=== PATIENT | female | born 1930 | race Caucasian/White ===

== ENCOUNTER 2018-07-18 19:07 | Emergency (ER) | payer MEDICARE, OTHER ==
[~2018-07-18] VITALS: Ht 167.6 cm; Wt 84.7 kg
[2018-07-18] MEDS ORDERED: AMLODIPINE BESY10 MG PO (19:19)
[2018-07-18] MEDS ORDERED: CARVEDILOL12.5 MG PO (19:20)
[2018-07-18] MEDS ORDERED: FUROSEMIDE 20 M20 M1 PO (19:20)
[2018-07-18] MEDS ORDERED: LASIX 20 MG TAB20 MG PO (19:21)
[2018-07-18] MEDS ORDERED: SYNTHROID125 MC1 PO (19:21)
[2018-07-18] MEDS ORDERED: LISINOPRIL20 MG PO (19:22)
[2018-07-18] MEDS ORDERED: KLOR-CON 1010 MEQ PO (19:22)
[2018-07-18] MEDS ORDERED: SEROQUEL 25 MG25 M1 PO (19:24)
[2018-07-18] MEDS ORDERED: SERTRALINE HCL100 MG PO (19:24)
[2018-07-18] MEDS ORDERED: COUMADIN 2 MG TA2 M1 PO (19:25)
[2018-07-18] MEDS ORDERED: GAVILAX17 GM PO (19:25)
[2018-07-18] MEDS ORDERED: ACETAMINOPHEN500 M1 PO (19:26)
[2018-07-18] MEDS ORDERED: SEROQUEL 25 MG25 M2 PO (19:27)
[2018-07-18 20:06] LABS: ABSOLUTE BASOPHILS 0.1 thou/uL (0.0-0.2); ABSOLUTE EOSINOPHILS 0.2 thou/uL (0.0-0.7); ABSOLUTE LYMPHOCYTES 1.3 thou/uL (0.8-5.3); ABSOLUTE NEUTROPHILS 5.5 thou/uL (1.6-8.1); BASOPHILS 0.9 %; EOSINOPHILS 2.5 %; HEMATOCRIT 38.2 % (37.0-47.0); HEMOGLOBIN 12.8 gm/dL (12.0-15.0); LYMPHOCYTES 15.9 %; MCH 29.5 pg (26.0-34.0); MCHC 33.6 g/dL (28.0-37.0); MCV 87.6 fL (80.0-100.0); MONOCYTES 12.3 %; MPV 8.4 fl. (7.2-11.1); NUCLEATED RBCS 0 /100WBC; PLATELET COUNT* 201 thou/uL (150-400); POLYS 68.4 %; RBC 4.36 mil/uL (4.20-5.00); RDW-CV 15.4 % (10.5-14.5)
[2018-07-18 20:13] LABS: INR 2.4
[2018-07-18 20:17] LABS: ALBUMIN 3.4 g/dL (3.4-5.0); TOTAL BILIRUBIN 0.4 mg/dL (<0.1-1.0); TOTAL PROTEIN 6.5 g/dL (6.4-8.2)
[2018-07-18 20:26] LABS: URINE BILIRUBIN NEGATIVE (Negative); URINE BLOOD NEGATIVE (Negative); URINE CLARITY CLEAR; URINE COLOR YELLOW; URINE GLUCOSE-RANDOM NEGATIVE (Negative); URINE KETONES TRACE (Negative); URINE LEUKOCYTES-REFLEX TRACE (Negative); URINE NITRITE-REFLEX NEGATIVE (Negative); URINE PROTEIN NEGATIVE (Negative); URINE SPECIFIC GRAVITY >= 1.030 (1.005-1.030); URINE UROBILINOGEN 0.2 E.U./dl (0.2-1.0)
[2018-07-18 20:32] LABS: SQUAMOUS >10 Many /LPF (0-3)
[2018-07-18 20:33] LABS: BACTERIA-REFLEX 1-9 Few /HPF (None Seen); CRYSTALS None Seen /LPF (None Seen); FINE GRANULAR CASTS >10 Many /LPF (None Seen); URINE RBC 0-2 Rare /HPF (0-2); URINE WBC-REFLEX 0-5 Rare /HPF (0-5)
[2018-07-18 21:32] VITALS: BP 122/68
== END 2018-07-18 21:32 | disposition home or self-care (01) ==
LOC: M.ERS 19:07
PROVIDERS: Emergency Medicine
DX: S51.011A Laceration without foreign body of right elbow, initial encounter (principal); I48.91 Unspecified atrial fibrillation; F32.9 Major depressive disorder, single episode, unspecified; F03.90 Unspecified dementia, unspecified severity, without behavioral disturbance, psychotic disturbance, mood disturbance, and anxiety; E03.9 Hypothyroidism, unspecified; F41.9 Anxiety disorder, unspecified; I50.9 Heart failure, unspecified; Z88.8 Allergy status to other drugs, medicaments and biological substances; W18.2XXA Fall in (into) shower or empty bathtub, initial encounter; Y93.89 Activity, other specified; Y92.89 Other specified places as the place of occurrence of the external cause; Y99.8 Other external cause status

== ENCOUNTER 2018-10-24 22:47 | Inpatient (IN) | payer MEDICARE, OTHER ==
[~2018-10-24] VITALS: Ht 172.7 cm; Wt 85.7 kg
[~2018-10-24 22:47] MED LIST: ACETAMINOPHEN500 M1 PO; AMLODIPINE BESY10 MG PO; CARVEDILOL12.5 MG PO; COUMADIN 2 MG TA2 M1 PO; FUROSEMIDE 20 M20 M1 PO; GAVILAX17 GM PO; KLOR-CON 1010 MEQ PO; LASIX 20 MG TAB20 MG PO; LISINOPRIL20 MG PO; SEROQUEL 25 MG25 M1 PO; SEROQUEL 25 MG25 M2 PO; SERTRALINE HCL100 MG PO; SYNTHROID125 MC1 PO
[2018-10-24 22:52] VITALS: BP 154/79
[2018-10-24 23:55] LABS: ABSOLUTE BASOPHILS 0.1 thou/uL (0.0-0.2); ABSOLUTE EOSINOPHILS 0.1 thou/uL (0.0-0.7); ABSOLUTE LYMPHOCYTES 1.1 thou/uL (0.8-5.3); ABSOLUTE MONOCYTES 1.1 thou/uL (0.0-1.2); ABSOLUTE NEUTROPHILS 6.4 thou/uL (1.6-8.1); BASOPHILS 0.6 %; EOSINOPHILS 1.7 %; HEMATOCRIT 31.3 % (37.0-47.0); HEMOGLOBIN 10.6 gm/dL (12.0-15.0); MCH 29.3 pg (26.0-34.0); MCHC 33.9 g/dL (28.0-37.0); MCV 86.3 fL (80.0-100.0); MONOCYTES 12.6 %; MPV 8.6 fl. (7.2-11.1); NUCLEATED RBCS 0 /100WBC; PLATELET COUNT* 205 thou/uL (150-400); POLYS 73.1 %; RBC 3.63 mil/uL (4.20-5.00); RDW-CV 15.5 % (10.5-14.5); WBC 8.8 thou/uL (4.0-11.0)
[2018-10-24 23:56] LABS: CALCIUM 9.2 mg/dL (8.5-10.1); CREATININE 0.9 mg/dL (0.6-1.3); POTASSIUM 3.5 mmol/L (3.5-5.1)
[2018-10-25 02:27] LABS: INR 3.1
[2018-10-25 03:43] VITALS: BP 156/83
[2018-10-25 04:15] VITALS: BP 178/73
--- NOTE | 2018-10-25 04:15 | NUR ---
PT ADMITTED FROM ER. UP TO C WITH SBA. TRANSFERS WELL. LT KNEE WITH HEMATOMA AND AVULSION. LT LOWER LEG AND FOOT WITH ECCHYMOSIS AND EDEMA. ELEVATED ON PILLOW. ACEWRAP TO KNEE. PT CONFUSED X4 BUT COOPERATIVE. TELEMETRY APPLIED SHOWING A-FIB. SEE ADMISSION ASSESSMENT AND HX. WILL CONT TO MONITOR AND ASSIST NEEDED. BED ALARM ON.
[2018-10-25 06:52] LABS: HEMATOCRIT 29.1 % (37.0-47.0); HEMOGLOBIN 9.9 gm/dL (12.0-15.0)
[2018-10-25 08:00] VITALS: BP 153/68
--- NOTE | 2018-10-25 09:39 | NUR ---
ASSUMED CARE OF PATIENT THIS AM AT 0730. PATIENT IS ALERT, SHE IS ORIENTED TO PERSON AND COOPERATIVE. PATIENT C/O LEFT LEG PAIN THIS AM. LEFT LEG IS EDEMATOUS AND DISCOLORED. HE LEFT HEG HAS BEEN ELEVATED. TELE SHOWS AFIB. PATIENT ASSISTED WITH ADLS THROUGHOUT THE DAY. WILL CONTINUE TO MONITOR.
--- NOTE | 2018-10-25 10:50 | EKG ---
[place] [address] ELECTROCARDIOGRAM REPORT Name: WAQAS MATHUR Room: [address] ADM IN [facility].#: [id number] Admission: 10/25/18 Attend Phys: Kash Mckay Discharge: Date of : [birth year] Report #: [id number] THIS REPORT FOR: //name// [facility] ED Test Date: 2018-10-25 Test Time: 02:23:28 Pat Name: WAQAS MATHUR Department: Room: [facility] Gender: F Hook Tender: PEGGY : 1930 Requested By: Zari Slade Order Number: [id number] MD: Esdras Damon Measurements Intervals [place] Rate: 60 P: [place]: QRS: 47 QRSD: 109 T: 6 QT: 463 QTc: 463 Interpretive Statements Atrial fibrillation Borderline repolarization abnormality No previous ECG available for comparison Electronically Signed On 10-25-2018 10:50:29 CDT by Esdras Damon [email or web address] <ELECTRONICALLY SIGNED> By: Esdras Damon MD, [facility] 10/25/18 1050 0223 2 Esdras Damon MD, FACC /EPI
--- NOTE | 2018-10-25 11:04 | NUR ---
INITIAL ASSESSMENT: Pt evaluated for d/c planning needs. Reviewed chart and spoke with nurse, pt and pt's daughter Estella. Pt lives in memory care unit at the [facility]. Pt is retired RN. Pt is currently on service with [facility]. Pt uses walker for ambulation. Pt's daughter is hopeful pt will be able to return home on d/c from hospital. Will remain available to assist as needed.
[2018-10-25 12:01] VITALS: BP 146/67
--- NOTE | 2018-10-25 15:43 | NUR ---
P.T. ORDERS RECEIVED. CHART REVIEWED. SILVANO COMPLETED THIS DATE. FULL DOCUMENTATION TO FOLLOW.
[2018-10-25 16:50] VITALS: BP 148/74
[2018-10-25 20:00] VITALS: BP 161/89
[2018-10-26] VITALS: BP 156/73
[2018-10-26 04:00] VITALS: BP 162/78
--- NOTE | 2018-10-26 06:47 | NUR ---
ASSUMED PT CARE AT 1930. ASSESSMENT COMPLETED CHARTED. PT RESTING IN BED WITH BED ALARM ON. C/O LEFT LEG PAIN AND GIVEN PRN PAIN MEDICATION. UP WITH SBA TO BSC, ABLE TO MAKE SOME NEEDS KNOWN. IMPULSIVE AT TIMES BUT EASILY REDIRECTED. WILL CONTINUE TO MONITOR.
[2018-10-26 08:00] VITALS: BP 161/67
[2018-10-26 11:26] VITALS: BP 141/69
[2018-10-26 16:03] VITALS: BP 150/65
--- NOTE | 2018-10-26 18:39 | NUR ---
ASSUMED PATIENT AT 0730. PATIENT REMAINS ORIENTED TO PERSON ONLY. REORIENTED TO PLACE AND TIME PERIODICALLY THROUGH THE DAY. PATIENT ASSISTED UP IN CHAIR AND TO [facility]. SHE CONTINUES TO C/O LEFT LEG PAIN. PAIN MANAGED WITH PAIM MEDICATION. SHE STATES PAIN IS LESS BUT IS UNABLE TO RATE IT. PATIENT'S EARS IRRIGATED BILATERALLY PER DR ORDER. NO WAX RESULTS OBSERVED AT THIS TIME. TELE SHOWS CONTINUED A FIB. NO FALLS OR INJURY.
[2018-10-26 20:00] VITALS: BP 157/90
[2018-10-26 21:06] LABS: PROTIME 12.4 Seconds (9.20-11.50)
[2018-10-26 21:08] LABS: INR 1.2
[2018-10-27] VITALS (7 sets, daily range): BP systolic 148–173; BP diastolic 66–79
--- NOTE | 2018-10-27 05:56 | NUR ---
ASSUMED PT CARE AT 1930. ASSESSMENT COMPLETED CHARTED. ABLE TO MAKE SOME NEEDS KNOWN. UP WITH SBA AND WALKER. C/O LEFT LEG PAIN, PRN TRAMADOL GIVEN REQUESTED. PT RESTING IN BED AT THIS TIME. WILL CONTINUE TO MONITOR.
[2018-10-27] MEDS ORDERED: XARELTO10 MG PO (13:13)
--- NOTE | 2018-10-27 13:23 | NUR ---
Pt discharging back to [facility] today, resumption orders faxed to [facility]. Dtr in room and will transport.
--- NOTE | 2018-10-27 14:24 | NUR ---
ASSUMED PT CARE AT 0700 PT IS ALERT AMD ORIENTED X 1-2 PT DENIES PAIN OR SOA ON RA, PT IS UP WITH SBA WITH WALKER PT IS A FALL RISK BED ALARM IS ON, SPOKE WITH NOREEN WHO CLEARED PT FOR DISCHARGE PT WILL START ON XARELTO, PT IS DISCHARGING TO [facility], WILL CONTINUE TO MONITOR
[2018-10-27] MEDS ORDERED: SEROQUEL 25 MG25 M1 PO (15:46)
[2018-10-27] MEDS ORDERED: SERTRALINE HCL50 MG PO (15:47)
== END 2018-10-27 16:05 | disposition home health service (06) | DRG 604 ==
LOC: M.ERS 22:47 → M.TBA-ER 10-25 02:31 → M.2W 10-25 02:31
PROVIDERS: Emergency Medicine; ADMIT Internal Medicine
DX: S80.02XA Contusion of left knee, initial encounter (principal); G93.41 Metabolic encephalopathy; E03.9 Hypothyroidism, unspecified; I48.91 Unspecified atrial fibrillation; F41.3 Other mixed anxiety disorders; I50.9 Heart failure, unspecified; F32.9 Major depressive disorder, single episode, unspecified; W18.39XA Other fall on same level, initial encounter; F03.90 Unspecified dementia, unspecified severity, without behavioral disturbance, psychotic disturbance, mood disturbance, and anxiety; Z98.41 Cataract extraction status, right eye; Z98.42 Cataract extraction status, left eye; Z88.8 Allergy status to other drugs, medicaments and biological substances; Y93.89 Activity, other specified; Y92.89 Other specified places as the place of occurrence of the external cause; Y99.8 Other external cause status

== ENCOUNTER 2018-11-29 19:34 | Emergency (ER) | payer MEDICARE, OTHER ==
[~2018-11-29] VITALS: Ht 172.7 cm; Wt 82.3 kg
[~2018-11-29 19:34] MED LIST changes: +SERTRALINE HCL50 MG PO; +XARELTO10 MG PO
[2018-11-29] MEDS ORDERED: LACTULOSE10 GM/15 M PO (19:52)
[2018-11-29] MEDS ORDERED: PENICILLIN V P500 MG PO (19:53)
[2018-11-29 20:15] LABS: ABSOLUTE BASOPHILS 0.1 thou/uL (0.0-0.2); ABSOLUTE EOSINOPHILS 0.2 thou/uL (0.0-0.7); ABSOLUTE LYMPHOCYTES 1.4 thou/uL (0.8-5.3); ABSOLUTE NEUTROPHILS 6.6 thou/uL (1.6-8.1); BASOPHILS 0.8 %; EOSINOPHILS 2.3 %; HEMATOCRIT 37.1 % (37.0-47.0); HEMOGLOBIN 12.3 gm/dL (12.0-15.0); LYMPHOCYTES 15.1 %; MCH 28.6 pg (26.0-34.0); MCHC 33.2 g/dL (28.0-37.0); MONOCYTES 10.6 %; MPV 8.5 fl. (7.2-11.1); NUCLEATED RBCS 0 /100WBC; PLATELET COUNT* 210 thou/uL (150-400); POLYS 71.2 %; RBC 4.32 mil/uL (4.20-5.00); RDW-CV 15.6 % (10.5-14.5); WBC 9.3 thou/uL (4.0-11.0)
[2018-11-29 20:21] LABS: CALCIUM 9.2 mg/dL (8.5-10.1); POTASSIUM 4.1 mmol/L (3.5-5.1)
[2018-11-29 21:26] LABS: URINE BILIRUBIN NEGATIVE (Negative); URINE BLOOD TRACE (Negative); URINE CLARITY CLEAR; URINE COLOR YELLOW; URINE GLUCOSE-RANDOM NEGATIVE (Negative); URINE KETONES NEGATIVE (Negative); URINE LEUKOCYTES-REFLEX NEGATIVE (Negative); URINE NITRITE-REFLEX NEGATIVE (Negative); URINE PROTEIN NEGATIVE (Negative); URINE UROBILINOGEN 0.2 E.U./dl (0.2-1.0)
[2018-11-29] MEDS ORDERED: HYDROCODON-ACE1 EAC7 PO (21:44)
[2018-11-29 22:26] VITALS: BP 152/71
--- NOTE | 2018-11-30 13:44 | EKG ---
[place] [address] ELECTROCARDIOGRAM REPORT Name: WAQAS MATHUR [id number] Admission: 11/29/18 Attend Phys: Discharge: 11/29/18 Date of : [birth year] Report #: [id number] THIS REPORT FOR: //name// [facility] ED Test Date: 2018-11-29 Test Time: 19:46:33 Pat Name: WAQAS MATHUR Department: Room: Gender: F Welding Manager: Cherelle ASKEW : 1930 Requested By: Zari Slade Order Number: [id number] Bailee MD: Esdras Damon Measurements Intervals [place] Rate: 55 P: [place]: QRS: 28 QRSD: 95 T: 52 QT: 455 QTc: 436 Interpretive Statements Atrial fibrillation Low voltage, precordial leads Compared to ECG 10/25/2018 02:23:28 Low QRS voltage now present Electronically Signed On 11-30-2018 13:44:32 CDT by Esdras Damon [email or web address] <ELECTRONICALLY SIGNED> By: Esdras Damon MD, [facility] 11/30/18 1344 45 45 Esdras Damon MD, FACC /EPI
== END 2018-11-29 22:26 | disposition home or self-care (01) ==
LOC: M.ERS 19:34
PROVIDERS: Emergency Medicine
DX: S00.81XA Abrasion of other part of head, initial encounter (principal); S80.212A Abrasion, left knee, initial encounter; S20.212A Contusion of left front wall of thorax, initial encounter; W18.39XA Other fall on same level, initial encounter; Y93.01 Activity, walking, marching and hiking; Y92.89 Other specified places as the place of occurrence of the external cause; Y99.8 Other external cause status; I50.9 Heart failure, unspecified; I48.91 Unspecified atrial fibrillation; E03.9 Hypothyroidism, unspecified; F41.9 Anxiety disorder, unspecified; F32.9 Major depressive disorder, single episode, unspecified; F03.90 Unspecified dementia, unspecified severity, without behavioral disturbance, psychotic disturbance, mood disturbance, and anxiety; Z88.8 Allergy status to other drugs, medicaments and biological substances

== ENCOUNTER 2019-05-02 02:45 | Emergency (ER) | payer MEDICARE, OTHER ==
[~2019-05-02] VITALS: Ht 172.7 cm; Wt 82.6 kg
[~2019-05-02 02:45] MED LIST changes: +HYDROCODON-ACE1 EAC7 PO; +LACTULOSE10 GM/15 M PO; +PENICILLIN V P500 MG PO
[2019-05-02] MEDS ORDERED: ZANAFLEX4 MG PO (02:58)
[2019-05-02 03:12] LABS: ABSOLUTE BASOPHILS 0.1 thou/uL (0.0-0.2); ABSOLUTE EOSINOPHILS 0.2 thou/uL (0.0-0.7); ABSOLUTE LYMPHOCYTES 1.4 thou/uL (0.8-5.3); ABSOLUTE NEUTROPHILS 4.6 thou/uL (1.6-8.1); BASOPHILS 0.9 %; EOSINOPHILS 3.2 %; HEMATOCRIT 39.6 % (37.0-47.0); HEMOGLOBIN 13.2 gm/dL (12.0-15.0); LYMPHOCYTES 19.4 %; MCH 28.7 pg (26.0-34.0); MCHC 33.3 g/dL (28.0-37.0); MCV 86.2 fL (80.0-100.0); MONOCYTES 13.6 %; MPV 8.5 fl. (7.2-11.1); NUCLEATED RBCS 0 /100WBC; PLATELET COUNT* 180 thou/uL (150-400); POLYS 62.9 %; WBC 7.3 thou/uL (4.0-11.0)
[2019-05-02 03:21] LABS: CALCIUM 9.1 mg/dL (8.5-10.1); CREATININE 0.8 mg/dL (0.6-1.3); POTASSIUM 3.8 mmol/L (3.5-5.1)
[2019-05-02 03:24] LABS: APTT 31.1 Seconds (25.0-31.3); INR 1.1; PROTIME 11.4 Seconds (9.20-11.50)
[2019-05-02 03:26] LABS: ALBUMIN 3.8 g/dL (3.4-5.0); TOTAL BILIRUBIN 0.6 mg/dL (<0.1-1.0); TOTAL PROTEIN 6.8 g/dL (6.4-8.2)
[2019-05-02 04:23] VITALS: BP 169/88
== END 2019-05-02 04:24 | disposition home or self-care (01) ==
LOC: M.ERS 02:45
PROVIDERS: Family Medicine
DX: S00.83XA Contusion of other part of head, initial encounter (principal); I50.9 Heart failure, unspecified; I48.91 Unspecified atrial fibrillation; E03.9 Hypothyroidism, unspecified; F41.9 Anxiety disorder, unspecified; F32.9 Major depressive disorder, single episode, unspecified; Z87.440 Personal history of urinary (tract) infections; Z88.8 Allergy status to other drugs, medicaments and biological substances; W06.XXXA Fall from bed, initial encounter; Y93.89 Activity, other specified; Y92.89 Other specified places as the place of occurrence of the external cause; Y99.8 Other external cause status

== ENCOUNTER 2020-01-19 14:48 | Emergency (ER) | payer MEDICARE, OTHER ==
[~2020-01-19] VITALS: Ht 172.7 cm; Wt 69.0 kg
[~2020-01-19 14:48] MED LIST changes: +ZANAFLEX4 MG PO
[2020-01-19 16:38] VITALS: BP 179/90
== END 2020-01-19 18:29 | disposition home or self-care (01) ==
LOC: M.ERS 14:48
DX: S16.1XXA Strain of muscle, fascia and tendon at neck level, initial encounter (principal); S00.83XA Contusion of other part of head, initial encounter; I50.9 Heart failure, unspecified; I48.91 Unspecified atrial fibrillation; E03.9 Hypothyroidism, unspecified; Z87.440 Personal history of urinary (tract) infections; Z88.8 Allergy status to other drugs, medicaments and biological substances; W22.8XXA Striking against or struck by other objects, initial encounter; Y93.89 Activity, other specified; Y92.89 Other specified places as the place of occurrence of the external cause; Y99.8 Other external cause status

== ENCOUNTER 2020-06-03 11:31 | Emergency (ER) | payer MEDICARE, OTHER ==
[~2020-06-03] VITALS: Ht 172.7 cm; Wt 83.5 kg
[2020-06-03 12:13] LABS: ABSOLUTE BASOPHILS 0.1 thou/uL (0.0-0.2); ABSOLUTE EOSINOPHILS 0.2 thou/uL (0.0-0.7); ABSOLUTE LYMPHOCYTES 1.4 thou/uL (0.8-5.3); ABSOLUTE NEUTROPHILS 5.2 thou/uL (1.6-8.1); BASOPHILS 1.2 %; EOSINOPHILS 2.4 %; HEMATOCRIT 34.5 % (37.0-47.0); HEMOGLOBIN 11.9 gm/dL (12.0-15.0); LYMPHOCYTES 17.4 %; MCH 30.5 pg (26.0-34.0); MCHC 34.4 g/dL (28.0-37.0); MCV 88.8 fL (80.0-100.0); MONOCYTES 12.6 %; MPV 8.3 fl. (7.2-11.1); NUCLEATED RBCS 0 /100WBC; PLATELET COUNT* 164 thou/uL (150-400); POLYS 66.4 %; RBC 3.88 mil/uL (4.20-5.00); WBC 7.8 thou/uL (4.0-11.0)
[2020-06-03 12:19] LABS: CALCIUM 8.5 mg/dL (8.5-10.1); CREATININE 0.8 mg/dL (0.6-1.3); POTASSIUM 3.4 mmol/L (3.5-5.1)
[2020-06-03 12:22] LABS: INR 1.6; PROTIME 16.3 Seconds (9.20-11.50)
[2020-06-03 12:31] LABS: ALBUMIN 3.4 g/dL (3.4-5.0); TOTAL BILIRUBIN 0.9 mg/dL (<0.1-1.0); TOTAL PROTEIN 6.2 g/dL (6.4-8.2)
[2020-06-03 12:39] LABS: URINE BILIRUBIN NEGATIVE (Negative); URINE BLOOD NEGATIVE (Negative); URINE CLARITY CLEAR; URINE COLOR YELLOW; URINE GLUCOSE-RANDOM NEGATIVE (Negative); URINE KETONES NEGATIVE (Negative); URINE LEUKOCYTES-REFLEX TRACE (Negative); URINE NITRITE-REFLEX NEGATIVE (Negative); URINE PROTEIN NEGATIVE (Negative); URINE UROBILINOGEN 0.2 E.U./dl (0.2-1.0)
[2020-06-03 12:58] LABS: BACTERIA-REFLEX None Seen /HPF (None Seen); CASTS None Seen /LPF (None Seen); CRYSTALS None Seen /LPF (None Seen); MUCUS None Seen strn/LPF (None Seen); SQUAMOUS 4-10 Moderate /LPF (0-3); URINE RBC 0-2 Rare /HPF (0-2); URINE WBC-REFLEX 0-5 Rare /HPF (0-5)
[2020-06-03 14:18] VITALS: BP 154/67
--- NOTE | 2020-06-03 17:22 | EKG ---
[place] [address] ELECTROCARDIOGRAM REPORT Name: WAQAS MATHUR Room: [facility]#: [id number] Admission: 06/03/20 Attend Phys: Discharge: 06/03/20 Date of : [birth year] Date of Service: 06/03/20 1154 Report #: [id number] THIS REPORT FOR: //name// [facility] ED Test Date: 2020-06-03 Test Time: 11:54:38 Pat Name: WAQAS MATHUR Department: Room: Gender: Clinical Laboratory Aide: JGUEST2 : 1930 Requested By: Kirk Juares Order Number: [id number] MD: Esdras Damon Measurements Intervals [place] Rate: 65 P: [place]: QRS: 56 QRSD: 103 T: QT: 457 QTc: 476 Interpretive Statements Atrial fibrillation artifact noted Abnormal R-wave progression, late transition Borderline repol abnrm, inferolateral leads Compared to ECG 11/29/2018 19:46:33 no change Electronically Signed On 06-03-2020 17:22:43 PRINTING ASSISTANT by Esdras Damon [email or web address] <ELECTRONICALLY SIGNED> By: Esdras Damon MD, FAC 06/03/20 1722 1154 1154 Esdras Damon MD, [facility] /EPI
--- NOTE | 2020-06-03 17:23 | EKG ---
[place] [address] ELECTROCARDIOGRAM REPORT Name: WAQAS MATHUR Room: [facility]#: [id number] Admission: 06/03/20 Attend Phys: Discharge: 06/03/20 Date of : [birth year] Date of Service: 06/03/20 1156 Report #: [id number] THIS REPORT FOR: //name// [facility] ED Test Date: 2020-06-03 Test Time: 11:56:36 Pat Name: WAQAS MATHUR Department: Room: Gender: F Oxygraph Operator: JGUEST2 : 1930 Requested By: Kirk Juares Order Number: [id number] MD: Esdras Damon Measurements Intervals [place] Rate: 62 P: [place]: QRS: 48 QRSD: 107 T: 62 QT: 472 QTc: 480 Interpretive Statements Atrial fibrillation Abnormal R-wave progression, late transition Minimal ST depression, inferior leads Baseline wander in lead(s) V6 Compared to ECG 06/03/2020 11:54:38 no change Electronically Signed On 06-03-2020 17:23:29 [employer] REP by Esdras Damon [email or web address] <ELECTRONICALLY SIGNED> By: Esdras Damon MD, [facility] 06/03/20 1723 1156 1156 Esdras Damon MD, [facility] /EPI
== END 2020-06-03 14:25 | disposition home or self-care (01) ==
LOC: M.ERS 11:31
PROVIDERS: Family Medicine
DX: S00.83XA Contusion of other part of head, initial encounter (principal); Z20.828 Contact with and (suspected) exposure to other viral communicable diseases; M25.552 Pain in left hip; R42 Dizziness and giddiness; I50.9 Heart failure, unspecified; I48.91 Unspecified atrial fibrillation; E03.9 Hypothyroidism, unspecified; Z79.899 Other long term (current) drug therapy; Z88.8 Allergy status to other drugs, medicaments and biological substances; W18.39XA Other fall on same level, initial encounter; Y93.89 Activity, other specified; Y92.89 Other specified places as the place of occurrence of the external cause; Y99.8 Other external cause status